=== PATIENT | female | born 2005 | race African-American/Black ===

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

== ENCOUNTER → 2023-07-24 11:11 | Outpatient (CLI) | payer BC, SELFPAY ==
--- NOTE | ~2023-07-24 | US_ITS ---
EXAMINATION: US OB <= 14 weeks fetus DATE: 07/24/2023 12:16 INDICATION: First trimester dating TECHNIQUE: Real-time pelvic transabdominal and transvaginal ultrasound was performed. COMPARISON: None. FINDINGS: The uterus measures 13.4 x 6.8 x 7.9 cm. There is an intrauterine gestational sac. A yolk s ac is identified. heart motion is identified measuring 175 beats per minute (bpm) by M-mode Dop pler. The crown rump length measures 4.3 cm, which correlates with an estimated gestational age of 11 weeks and 1 day(s) (+/-) 7 day(s). The right ovary measures 4.9 x 2.9 x 2.7 cm. The left ovary measures 2.8 x 2.0 x 1.7 cm. There is nor mal vascular flow in the ovaries. There is no free fluid in the pelvis. IMPRESSION: 1. Live intrauterine with an estimated gestational age of 11 weeks and 1 day(s) (+/-) 7 day (s) and an estimated delivery date of 02/11/2024. Reviewed, dictated and finalized at location A. IMPRESSION: 1. Live intrauterine with an estimated gestational age of 11 weeks an d 1 day(s) (+/-) 7 day(s) and an estimated delivery date of 02/11/2024.
--- NOTE | ~2023-07-24 | US_ITS ---
US breast RT complete DATE: 07/24/2023 11:32 INDICATION: Follow-up of palpable lump in upper outer quadrant of right breast since 09/08/2021 TECHNIQUE: Real-time imaging of complete right breast including all 4 quadrants and subareolar area COMPARISON: 09/08/2021 Limited right breast ultrasound FINDINGS: At 11:00 12 cm from the nipple there is a circumscribed benign appearing lymph node measuri ng 3.5 x 9.6 x 9.7 mm, with uniform thickness and echogenicity of the cortex, vascularity at the hilu m. No suspicious shadowing is noted. No suspicious mass or shadowing, cyst or other significant sonographic finding is noted in the right breast. IMPRESSION: BI-RADS Category 2: Benign Reviewed, dictated and finalized at Location A. Reviewed, dictated and finalized at location A. IMPRESSION: BI-RADS Category 2: Benign
== END ==
PROVIDERS: PCP Registered Nurse; Visit Provider Registered Nurse
DX: Z36.9 Encounter for antenatal screening, unspecified (principal); Z87.898 Personal history of other specified conditions; Z3A.11 11 weeks gestation of pregnancy
CPT/HCPCS: 76641; 76801

== ENCOUNTER 2023-09-18 11:10 | Outpatient (CLI) | payer BC, SELFPAY ==
[2023-09-18 11:41] LABS: Basophils Percent Auto 0.3 % (0.2-1.2); Eosinophils Absolute Auto 0.1 K/mm3 (0-0.3); Eosinophils Percent Auto 0.8 % (0-4.4); Hematocrit 40.2 % (37.0-47.0); Hemoglobin 13.4 g/dL (12.0-15.0); Immature Granulocyte Absolute 0.04 K/mm3 (0.00-0.031); Immature Granulocyte Percent A 0.4 % (0-0.5); Lymphocytes Absolute Auto 2.18 K/mm3 (0.9-3.2); Lymphocytes Percent Auto 24.2 % (18.3-44.2); Mean Corpuscular HGB Conc 33.3 g/dl (32-36); Mean Corpuscular Hemoglobin 29.4 pg (26-34); Mean Corpuscular Volume 88.2 fl (80-100); Mean Platelet Volume 10.5 fl (7.4-10.4); Monocytes Absolute Auto 0.7 K/mm3 (0.1-0.6); Monocytes Percent Auto 7.3 % (2.6-8.5); Platelet Count Result 211 k/mm3 (150-375); Red Blood Count 4.56 M/mm3 (4.2-5.4); Red Cell Distribution Width 12.7 % (11.5-14.5)
[2023-09-18 11:48] LABS: Appearance Urine Cloudy (Clear); Bacteria Urine 4+ /hpf; Bilirubin Urine Negative (Negative); Blood Urine Negative (Negative); Color Urine Yellow (Yellow); Glucose Urine UA Negative (Negative); Ketones Urine Negative (Negative); Leukocyte Esterase Ur Negative LEU/UL (NEGATIVE); Nitrate Urine Negative (Negative); Non Pathogenic Casts 0-2; Protein Urine Negative (Negative); RBC Urine 0-2 /hpf (0-2); Specific Grav Ur 1.024 (1.001-1.035); Squamous Epithelial Cell Urine Moderate /hpf (Few); pH Urine 6.5 (5.0-9.0)
[2023-09-18 11:50] LABS: Add Urine Microscopic? YES
[2023-09-18 12:20] LABS: Vitamin D 25 Hydroxy 40.1 ng/mL
[2023-09-18 12:32] LABS: HIV 1/2 Ab P24 Ag Result Negative (Negative)
[2023-09-18 12:45] LABS: Hepatitis B Surface Antigen Negative (Negative)
[2023-09-18 12:51] LABS: Hepatitis C Virus Antibody Negative (Negative)
[2023-09-18 13:18] LABS: Rapid Plasma Reagin Non-Reactive (NonReactive)
[2023-09-18 21:03] LABS: Rubella IgG Antibody > 110.0 IU/ML
[2023-09-22 14:43] LABS: Hematocrit 40.4 % (35.0-45.0); Hemoglobin 13.9 g/dL (11.7-15.5); MCH 30.2 pg (27.0-33.0); MCV 87.8 fL (80.0-100.0); RDW 12.5 % (11.0-15.0)
== END 2023-09-18 11:11 | disposition home or self-care (01) ==
LOC: ANHLAB 11:11
PROVIDERS: PCP Registered Nurse; Visit Provider Obstetrics & Gynecology
DX: Z34.01 Encounter for supervision of normal first pregnancy, first trimester (principal); Z3A.00 Weeks of gestation of pregnancy not specified
CPT/HCPCS: 36415; 81001; 82306; 83021; 84443; 85025; 86592; 86703; 86762; 86787; 86803; 86850; 86900; 86901; 87086; 87088; 87340; G0432

== ENCOUNTER 2023-11-05 21:14 | Observation (INO) | payer BC, SELFPAY ==
[2023-11-05 21:45] VITALS: BP 124/58; PULSE 96
[2023-11-05 22:00] VITALS: BP 113/56; PULSE 86
[2023-11-05 22:15] VITALS: BP 120/86; PULSE 99
[2023-11-05 22:26] VITALS: BMI 23.9
--- NOTE | 2023-11-06 08:36 | PM.OBTRLD ---
OB - Triage/Final Diagnosis Visit Information Reason for evaluation: threatened labor Comments/Additional reasons for admission: I have assessed the risk for this patient, Spring Deleon, and determined that she would benefit from observation care. Evaluation Vital signs: Vital Signs - 24 hr 11/05/23 21:45 11/05/23 22:00 11/05/23 22:15 Pulse Rate 96 86 99 Blood Pressure 124/58 L 113/56 L 120/86
== END 2023-11-05 22:40 | disposition home or self-care (01) ==
PROVIDERS: Admitting Provider Obstetrics & Gynecology; PCP Registered Nurse; Visit Provider Obstetrics & Gynecology
DX: O47.02 False labor before 37 completed weeks of gestation, second trimester (principal); Z3A.25 25 weeks gestation of pregnancy
CPT/HCPCS: 59025; G0378; G0379

== ENCOUNTER 2023-12-10 13:50 | Outpatient (CLI) | payer BC, SELFPAY ==
[2023-12-10 15:13] LABS: Hematocrit 38.6 % (37.0-47.0); Hemoglobin 12.6 g/dL (12.0-15.0); Mean Corpuscular HGB Conc 32.6 g/dl (32-36); Mean Corpuscular Hemoglobin 29.8 pg (26-34); Mean Corpuscular Volume 91.3 fl (80-100); Mean Platelet Volume 10.9 fl (7.4-10.4); Platelet Count Result 162 k/mm3 (150-375); Red Blood Count 4.23 M/mm3 (4.2-5.4); Red Cell Distribution Width 13.5 % (11.5-14.5); White Blood Count 8.6 K/mm3 (4.5-10.0)
[2023-12-10 15:25] LABS: Glucose 1 Hour PP 50gm Dose 77 mg/dL
[2023-12-10 16:05] LABS: HIV 1/2 Ab P24 Ag Result Negative (Negative)
[2023-12-11 13:59] LABS: Rapid Plasma Reagin Non-Reactive (NonReactive)
[2023-12-13 06:19] LABS: Prolactin 101.6 ng/mL (***)
== END 2023-12-10 13:51 | disposition home or self-care (01) ==
LOC: ANHLAB 13:52
PROVIDERS: Obstetrics & Gynecology; PCP Registered Nurse; Visit Provider Registered Nurse
DX: Z34.92 Encounter for supervision of normal pregnancy, unspecified, second trimester (principal); N64.52 Nipple discharge
CPT/HCPCS: 36415; 82947; 84146; 85027; 86592; 86703; G0432

== ENCOUNTER 2024-02-12 01:33 | Inpatient (IN) | payer BC, SELFPAY ==
[2024-02-12] VITALS (66 sets, daily range): BP systolic 93–181; BP diastolic 30–163; PULSE 74–200; RESP 16–18; TEMP 36.7–37.4; O2SAT 93–100; BMI 34.2
--- NOTE | 2024-02-12 02:04 | LDADM ---
This patient, Spring Deleon, was admitted to Labor/Delivery/Recovery 104 on 02/12/24 at 01:33. Plans for labor, pain management and were discussed with patient. Patient/family oriented to hospital policies and general routines including ID bracelet, bed and alarms, visiting hours, pain management, procedures, bathroom and other care routines, personal items, smoking policy, room service/diet and guest tray routines, security routines, and visiting hours. Patient/Family are encouraged to report perceived risks to care and to ask questions if they do not understand what they are told or what they should do. See OBIX for further documentation.
[2024-02-12 02:05] LABS: Basophils Percent Auto 0.1 % (0.2-1.2); Eosinophils Percent Auto 0.3 % (0-4.4); Hematocrit 43.4 % (37.0-47.0); Hemoglobin 14.5 g/dL (12.0-15.0); Immature Granulocyte Absolute 0.05 K/mm3 (0.00-0.031); Immature Granulocyte Percent A 0.3 % (0-0.5); Lymphocytes Absolute Auto 1.56 K/mm3 (0.9-3.2); Lymphocytes Percent Auto 10.7 % (18.3-44.2); Mean Corpuscular HGB Conc 33.4 g/dl (32-36); Mean Corpuscular Hemoglobin 29.5 pg (26-34); Mean Corpuscular Volume 88.2 fl (80-100); Mean Platelet Volume 11.4 fl (7.4-10.4); Monocytes Absolute Auto 1.2 K/mm3 (0.1-0.6); Neutrophils Absolute Auto 11.7 K/mm3 (1.3-6.7); Neutrophils Percent Auto 80.6 % (45.5-73.1); Platelet Count Result 170 k/mm3 (150-375); Red Blood Count 4.92 M/mm3 (4.2-5.4); Red Cell Distribution Width 13.5 % (11.5-14.5); White Blood Count 14.5 K/mm3 (4.5-10.0)
[2024-02-12] MEDS: LACTATED RINGERS 1,000 ML 125 ML IV CONT (02:05)
--- NOTE | 2024-02-12 02:37 | WPDANESEPP ---
Anes - Eval Pre Procedure Procedure: labor epidural Date/Time: 02/12/24 02:37 Pre Op Diagnosis: Labor Patient Data Age: 19 Gender: F Height: 1.57 m Weight: 85 kg Last Vital Signs Pulse 119 H 02/12/24 02:32 BP 124/73 02/12/24 02:32 Allergies Allergy/AdvReac Type Severity Reaction Status Date / Time POLLENEXTRACT Allergy Mild Other Uncoded 02/05/24 10:57 Home Medications Medication Instructions Recorded Confirmed Type vitamins-iron fumarate 65 1 tablet PO DAILY 07/18/23 01/15/24 History mg iron-folic acid 1 mg tablet Laboratory Tests 02/12/24 01:55 WBC Pending RBC Pending Hgb Pending Hct Pending MCV Pending MCH Pending MCHC Pending RDW Pending Plt Count Pending MPV Pending Immature Gran % (Auto) Pending Neut % (Auto) Pending Lymph % (Auto) Pending [place] % (Auto) Pending Eos % (Auto) Pending Baso % (Auto) Pending Lymph # (Auto) Pending [place] # (Auto) Pending Eos # (Auto) Pending Baso # (Auto) Pending Abs Immat Gran (auto) Pending Absolute Neuts (auto) Pending Absolute Nucleated RBC Pending Nucleated RBC % Pending RPR Pending Patient hx anesthesia problems: none Family hx anesthesia problems: none Results Review: All pre-operative results and documents have been reviewed as part of the pre-operative evaluation. [facility] Past Medical History Medical History Amenorrhea, primary Breast mass, right (09/2021) had ULtrasound Benign Encounter for supervision of normal first in first trimester Finger deformity surgery on bilateral pinky finger for growth plate Nipple discharge Family History Family History Mother Asthma Cancer of kidney Father Diabetes mellitus Hypertension Heart disease Grandparent Diabetes mellitus paternal Hypertension paternal Heart disease paternal Other Stomach cancer paternal aunt Social History Social History Smoking status: Never smoker Second hand tobacco smoke exposure: No Alcohol intake: never Substance use: never Substance use type: does not use Do You Feel Safe in your Home?: Yes Lack of Transportation: No Lack of Food: Never True Current Housing: I Have Housing Concerned About Future Housing: No Difficulty Paying Gas/Electric Bills: No Difficulty Paying for Meds: No Currently Unemployed: No Education: High School Diploma/GED Difficulty w/ Childcare or Family Care: No Living arrangements: other Additional living arrangements comments: lives with boyfriend Occupation/Education: occupation Additional occupation/education comments: 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
[2024-02-12] MEDS: PHENYLEPHRINE 1,000 MCG/10 ML SYRINGE 100 MCG IV PUSH ×2 (03:25→03:30)
[2024-02-12] MEDS: OXYTOCIN 30 UNITS/NS 500 ML 30 UNITS/500 ML BAG 999 UNITS IV CONT (05:24)
--- NOTE | 2024-02-12 05:38 | WPDHPUPDATE1 ---
History and Physical Update Update Date/Time: 02/12/24 05:38 History and Physical has been reviewed, including an updated exam of the patient. There are NO changes in the patient's condition. Risks, benefits, and alternatives have been discussed and questions answered. Patient agrees to proceed with procedure.
--- NOTE | 2024-02-12 05:38 | WPDOBADMIT ---
Obstetrics - Admit Note Admission Note: record reviewed. No pertinent additions to the history and/or any subsequent changes in the physical findings that are not consistent with the expected course of the were found. Additions to the history and/or subsequent changes in the physical findings follow. None.
--- NOTE | 2024-02-12 05:38 | PM.OBPRVD ---
OB - Vaginal Delivery Note Procedure Delivery date: 02/12/24 Induction method: None Delivery monitor: External FHT and External Uterine Route of delivery: Episiotomy description: None Laceration Description: None Specimen: No Quantitative Blood Loss (ml): 300 Anesthesia type: Epidural Disposition: Floor Complications: No immediate complications Narrative: Patient was prepped and draped in the usual manner for vaginal delivery. Maternal expulsive efforts readily delivered vertex over intact perineum, rest of baby delivered without difficulty. Cord was clamped cut baby was placed on maternal abdomen. Placenta delivered spontaneously and uterus was well contracted with minimal bleeding. Evaluation of the cervix vaginal vulva revealed no significant tears or lacerations, there was no bleeding. At this point procedure was considered terminated with immediate postoperative condition of mother and baby both excellent. Baby Weeks of gestation at delivery: 40 gender: Female presentation: vertex position: Right Occiput Anterior Placenta delivery description: Spontaneous Cord Vessel Description: 3 Vessels score one minute: 8 score five minutes: 9 AMG Delivery Billing Delivery Delivery: Delivery Charge
[2024-02-12] MEDS: OXYTOCIN 30 UNITS/NS 500 ML 30 UNITS/500 ML BAG 125 UNITS IV CONT (05:56)
[2024-02-12] MEDS: WITCH HAZEL 40 PADS 1 PAD TOPICAL (08:07)
[2024-02-12] MEDS: BENZOCAINE 20% AER SPR (*SP) 56 GM CAN 1 SPRAY TOPICAL (08:07)
--- NOTE | 2024-02-12 08:23 | OBPPTRN ---
Patient transferred to post room # 292 via wheelchair accompanied by and fob. Support person present. Pt introductions made and plan of care discussed per post , pain management, breast feeding, daily care activities. Oriented to unit, room, information board, rooming in, admission packet and security measures. PT and fob both recipients of such instructions and no barriers to learning identified at this time. PT received such instructions per one to one discussion, mom baby care guide and demonstrations this shift. Patient verbalizes understanding.
--- NOTE | 2024-02-12 11:12 | PC.NURSE ---
[id number] Introductions were made, then consulted with patient to assess needs related to . Discussed with mother her?plans to feed?her infant and the?experience so far. Encouraged understanding of the benefits of skin to skin (demonstrating unwrapping infant and placing upright on her chest), stimulating with massage touch, changing positions to encourage wakefulness, how to watch for early feeding cues, responsive feeding, feeding on demand (aiming for 8-12 times in 24 hours, about every 2-3 hours), milk production, building/maintaining a milk supply, duration of feeding, signs of adequate intake/output and how to record on the feeding sheet. Resources used for education were facilitated with the visual educational handout. Inpatient/outpatient resources provided with name written on the communication board. Mother voiced understanding of information and will call if there is a request for assistance. Reported to the Primary RN. [phone] Primary RN called for assistance in patient room. Upon entering RN is attempting to get infant to maintain latch using the football position. Reviewed positioning and ear, shoulder, hip alignment, supporting the breast to facilitate a deep latch, asymmetrical latch (off-center), leading with the chin with a big, open, wide gape and body close to mother. Infant latched optimally to the left breast in football position. Education given to the mother of how to visualize the suckling (with good rocking jaw motion), swallows (dropping of the lower jaw)with infant demonstrated swallowing with and without gentle compressions with suckling. was able to maintain latch without pain to mother protecting the nipple with optimal positioning and latching. Mother voiced understanding of information, demonstrated learning and will call if there is a request for assistance.
[2024-02-12 11:42] LABS: Rapid Plasma Reagin Non-Reactive (NonReactive)
[2024-02-12] MEDS: MULTIVIT/MIN/PREN/FOL AC/IRON TABLET 1 TAB PO (12:40)
[2024-02-12] MEDS: DOCUSATE SODIUM 100 MG CAPSULE PO ×2 (12:40→16:36)
[2024-02-12] MEDS: IBUPROFEN 600 MG TABLET PO (12:40)
[2024-02-12] MEDS: ACETAMINOPHEN 325 MG TABLET 650 MG PO (14:56)
[2024-02-13 01:13] VITALS: BP 127/75; PULSE 107; RESP 16; TEMP 36.9; O2SAT 98
[2024-02-13 05:54] LABS: Hematocrit 37.2 % (37.0-47.0); Hemoglobin 12.1 g/dL (12.0-15.0)
[2024-02-13 07:25] VITALS: BP 123/70; PULSE 81; RESP 16; TEMP 36.9; O2SAT 100
--- NOTE | 2024-02-13 08:35 | WPDANLDPN2 ---
Anes-Prog Note L&D Date/Time: 02/13/24 08:35 Neuro status: Neuro function grossly intact. Vital Signs: Last Vital Signs Temp 36.9 C 02/13/24 01:13 Pulse 107 H 02/13/24 01:13 Resp 16 02/13/24 01:13 BP 127/75 02/13/24 01:13 Pulse Ox 98 02/13/24 01:13 O2 Del Method Room Air 02/12/24 21:20 Pain score (VAS): 0 Patient feedback: Patient satisfied with anesthetic care.
[2024-02-13] MEDS: IBUPROFEN 600 MG TABLET PO ×2 (09:09→16:21)
[2024-02-13] MEDS: MULTIVIT/MIN/PREN/FOL AC/IRON TABLET 1 TAB PO (09:09)
[2024-02-13] MEDS: DOCUSATE SODIUM 100 MG CAPSULE PO (09:09)
--- NOTE | 2024-02-13 12:02 | PM.OBPNVD ---
OB - PN: Subj Subjective Date/time seen: 02/13/24 12:02 Patient comments: pain well controlled, tolerating diet and other (Decreasing lochia.) baby status: doing well and nursing well OB - PN: Obj Data Labs 02/13/24 05:37 Labs: Laboratory Results - last 24 hr 02/13/24 05:37 Hgb 12.1 Hct 37.2 OB - PN A/P Plan day: 1 Plan: routine care Comments: Patient doing well. Time Spent With Patient Time: Total time spent is greater than 50% in coordination of care (as documented) at patient's floor/unit and/or counseling patient: Exam Psych: Affect: normal affect Other: Abd: fundus firm below umbilicus, nontender Perineum: healing Ext: nontender
[2024-02-13] MEDS: ACETAMINOPHEN 325 MG TABLET 650 MG PO (13:50)
[2024-02-13 20:28] VITALS: BP 113/65; PULSE 91; RESP 16; TEMP 36.4; O2SAT 100
[2024-02-13 21:16] VITALS: PULSE 91; RESP 16; O2SAT 100
[2024-02-14] MEDS: IBUPROFEN 600 MG TABLET PO ×2 (03:24→08:24)
[2024-02-14 03:30] VITALS: BP 121/70; PULSE 92; O2SAT 100
[2024-02-14 08:00] VITALS: BP 125/71; PULSE 97; RESP 16; TEMP 36.9; O2SAT 100
[2024-02-14] MEDS: MULTIVIT/MIN/PREN/FOL AC/IRON TABLET 1 TAB PO (08:23)
[2024-02-14] MEDS: DOCUSATE SODIUM 100 MG CAPSULE PO (08:23)
--- NOTE | 2024-02-14 09:56 | P.PNOB_ITS ---
OB - PN: Subj Subjective Date/time seen: 02/14/24 09:56 Patient comments: pain well controlled, tolerating diet and other (Decreasing lochia.) baby status: doing well and nursing well Halma feeding status: exclusively breast feeding OB - PN: Obj Data Labs 02/13/24 05:37 OB - PN A/P Plan day: 2 Plan: discharge home and other Comments: Patient doing well. Follow up 4-6 weeks. Discharge instructions provided. Time Spent With Patient Time: Total time spent is greater than 50% in coordination of care (as documented) at patient's floor/unit and/or counseling patient: Time with patient: less than 15 minutes Exam Psych: Affect: normal affect Other: Abd: fundus firm below umbilicus, nontender Perineum: healing Ext: nontender
--- NOTE | 2024-02-14 12:03 | PC.NURSE ---
Patient viewed the discharge video Mother & Baby Care, The First Two Weeks . Patient was given the opportunity and encouraged to ask questions. Patient verbalized understanding of information shared and has been given the mother/baby guide for home reference.
--- NOTE | 2024-02-14 16:42 | PC.NURSE ---
[id number] Consulted with mother concerning needs. Mother is feeding appropriately for growth of , voiced understanding of how to stimulating to eat, and demonstrates effective on the left breast using cross cradle positioning. Encouraged mother to not allow infant to hang out at the breast non-nutritively sucking but rather watch for swallowing. has had appropriate feedings in the last 24 hours meets the outcomes for weight, output, blood sugar and jaundice at this time. Reinforced understanding of milk production, transition of milk, signs of adequate intake, transition of stool, prevention/relief of engorgement, plugged ducts, mastitis, responsive watching for feeding cues, the different methods of stimulating infant to breastfeed 1-3 hours after the start of the last feeding, community resources, and when to call a provider using the resource of the feeding sheet along with the mom and baby guide. Mother voiced understanding of the information shared, is confident to continue effectively her at home, when to call for assistance, denies any additional assistance or education at this time. Reported to the Primary RN.
[2024-02-15 08:33] VITALS: BP 120/65; PULSE 85; RESP 18; TEMP 36.8; O2SAT 100
--- NOTE | 2024-02-17 10:32 | PM.OBDSVD ---
DS: Admitting Diagnosis Discharge Date 02/14/24 Admitting Diagnosis DS: Discharge Diagnosis Discharge Diagnosis (1) , delivered: Code(s): O80 - Encounter for full-term uncomplicated delivery Status: Acute OB - DS: Summary OB Procedures : None OB Procedures Intrapartum: Spontaneous Vag Delivery OB Procedures: : None Peripartum Data Laceration Description: None Episiotomy description: None Time Spent with Patient Time attestation: Total time spent providing and/or coordinating discharge services: Discharge Plan Discharge Attending physician on discharge: Enrique Torrez Consulting providers: Dai Mcdowell Discharging Clinician: Enrique Torrez Anticipated Discharge Date/Time: 02/14/24 09:57 Patient Disposition: Home, Self-Care Activity: may shower and pelvic rest Diet: regular Discharge Instructions: Education: Mom and Baby Guide Given to: Mother Follow-Up: Call your delivering provider's office for an appointment to be seen in: 4-6 weeks Mom and baby should come to the [facility] for the follow-up appointment. Appointment Date/Time: February 15, 2024 at 8:00 am What to expect at your follow-up visit: Physical Assessment Call [phone] if you are unable to keep your appointment time. BREAST CARE: * Wear a snug supportive bra. * For engorgement discomfort: Breast Feeding: * Apply warm moist washcloths * Express milk as needed to relieve engorgement * Wear loose clothing Bottle Feeding: * May apply ice packs * For sore nipples: * Identify correct latch-on * Apply warm moist washcloths before and after nursing * Air dry nipples after nursing * May apply Lansinoh cream to nipples PERINEAL CARE: * Until bleeding stops, use your tye bottle after urinating * Change your pad frequently throughout the day * You may take sitz baths several times a day (fill your bathtub with warm water and soak for 20 minutes.) Do NOT bathe in the water * No tub baths until seen by your physician - You may shower ACTIVITY: * Rest as much as possible. * Do not exercise or lift anything heavier than your baby (such as laundry or other children.) * Avoid stairs or driving as much as possible. * Do not put anything into the vagina. No douching, tampons, or sexual activity until seen by physician. NOTIFY PHYSICIAN IF YOU HAVE ANY QUESTIONS OR IF ANY OF THE FOLLOWING SYMPTOMS OCCUR: * If your perineum becomes red, swollen, or more painful than what you have experienced in the hospital. * If your vaginal bleeding becomes foul smelling. * If your vaginal bleeding becomes more heavy than a period or if your bleeding changes from pink to bright red. However, you may pass an occasional walnut-sized clot once or twice for the first week . * If you experience a sharp, shooting pain in you calves. * If you discover a hard, reddened area on your breast or if you experience flu-like symptoms. DIET: * Eat regular, well-balanced meals. * Drink plenty of fluids daily. If , drink to thirst. Patient Instructions: Your Baby (DC), Vaginal Delivery (DC) Stand Alone Forms: General Discharge Information Follow-up/Referrals: Enrique Torrez MD [Physician] - 4 Weeks (call for appointment) Discharge Medications: Continued vit-iron fum-folic ac 65 mg iron- 1 mg tablet 1 tablet PO DAILY No Action cephalexin 500 mg capsule 500 mg PO Q6H 7 Days Qty: 28 0RF Date of admission: 02/12/24 01:33 Primary Care Provider: PHYSICIAN,VP CUSTOMER DEVELOPMENT Admitting Provider: Enrique Torrez Attending physician on admission: Enrique Torrez Condition: Stable
== END 2024-02-14 13:25 | disposition home or self-care (01) | DRG 807 ==
LOC: ANHLDR 01:48 → ANHOB2 08:27
PROVIDERS: Admitting Provider Obstetrics & Gynecology; Visit Provider Obstetrics & Gynecology
DX: O80 Encounter for full-term uncomplicated delivery (principal); Z37.0 Single live birth; Z3A.40 40 weeks gestation of pregnancy
CPT/HCPCS: 36415; 85014; 85018; 85025; 86592; 86850; 86900; 86901; A9270; J2371; J2590; J2795; J7120

== ENCOUNTER 2024-02-17 01:05 | Emergency (ER) | payer BC, SELFPAY ==
[2024-02-17 01:16] VITALS: BP 133/82; PULSE 100; RESP 17; TEMP 36.2; O2SAT 99
[2024-02-17 01:34] VITALS: BP 138/96; PULSE 105; RESP 18; O2SAT 100
--- NOTE | 2024-02-17 02:25 | ED.GENADULT ---
HPI - General Adult General Chief complaint: Unspecified Stated complaint: Swollen and painful breasts, s/p delivery Time Seen by Provider: 02/17/24 02:06 Source: patient Mode of arrival: ambulatory Limitations: no limitations History of Present Illness HPI narrative: Patient is a 19-year-old female who presents to ED with complaint of bilateral breast pain. Patient had an uncomplicated vaginal delivery on 02/11. She reports over the last couple of days she has had increased breast enlargement, bilateral breast pain. States initially had more pain and swelling in right breast, now involving left breast as well. She states her milk has fully come in. She has been and pumping, but reports decreased milk output from right breast today. Last pumped around 10pm. Reports chills, lightheadedness, fatigue, malaise, nausea. Denies known fevers. Denies vomiting. Has been using cool compresses, massage, Tylenol without much improvement. OBGYN = Dr. Torrez Related Data Home Medications Medication Instructions Recorded Confirmed vitamins-iron fumarate 65 1 tablet PO DAILY 07/18/23 01/15/24 mg iron-folic acid 1 mg tablet Allergies Allergy/AdvReac Type Severity Reaction Status Date / Time POLLENEXTRACT Allergy Mild Other Uncoded 02/17/24 01:36 Berries Allergy Other Uncoded 02/17/24 01:36 Review of Systems Review of Systems: CONSTITUTIONAL: See HPI. GASTROINTESTINAL: See HPI. Breast: See HPI NEUROLOGIC: Reports lightheadedness. All systems reviewed & are unremarkable except as noted in HPI and below PMFSH Past Medical History Medical History Amenorrhea, primary Breast mass, right (09/2021) had ULtrasound Benign Encounter for supervision of normal first in first trimester Finger deformity surgery on bilateral pinky finger for growth plate Nipple discharge Family History Family History Mother Asthma Cancer of kidney Father Diabetes mellitus Hypertension Heart disease Grandparent Diabetes mellitus paternal Hypertension paternal Heart disease paternal Other Stomach cancer paternal aunt Social History Social History Smoking status: Never smoker Second hand tobacco smoke exposure: No Alcohol intake: never Substance use: never Substance use type: does not use Do You Feel Safe in your Home?: Yes Lack of Transportation: No Lack of Food: Never True Current Housing: I Have Housing Concerned About Future Housing: No Difficulty Paying Gas/Electric Bills: No Difficulty Paying for Meds: No Currently Unemployed: No Education: High School Diploma/GED Difficulty w/ Childcare or Family Care: No Living arrangements: other Additional living arrangements comments: lives with boyfriend Occupation/Education: occupation Additional occupation/education comments: bj at [employer] Gender identity (if verbalized by the patient): Female Sexual Orientation (if Verbalized by the Patient): Straight or Heterosexual Spiritual care concerns: No Exam Narrative: GENERAL: Uncomfortable appearing, BMI 32.9, in mild acute distress due to pain. HEAD: Normocephalic, atraumatic. RESPIRATORY: Airway patent, respirations nonlabored. CARDIOVASCULAR: Borderline tachycardic with regular rhythm without murmurs, rubs, or gallops. MUSCULOSKELETAL: Moves all extremities. No gross deformities. BREAST: Bilateral breast engorgement. Breast appears swollen and inflamed. Right breast with small area of induration to inferior lateral portion of breast. Diffuse tenderness throughout right breast with more focal tenderness to indurated region. No significant induration appreciated throughout left breast. No focal fluctuance or evidence of abscess. No nipp
[2024-02-17] MEDS: CEPHALEXIN 500 MG CAPSULE PO (03:24)
[2024-02-17] MEDS: ACETAMINOPHEN 500 MG TABLET 1000 MG PO (03:24)
[2024-02-17] MEDS: IBUPROFEN 600 MG TABLET PO (03:24)
[2024-02-17] MEDS: ONDANSETRON INJ 4 MG/2 ML VIAL IV PUSH (03:24)
[2024-02-17] MEDS: SODIUM CHLORIDE 0.9% IV 1,000 ML 999 ML IV CONT (03:25)
[2024-02-17 04:15] LABS: Basophils Percent Auto 0.4 % (0.2-1.2); Eosinophils Absolute Auto 0.2 K/mm3 (0-0.3); Eosinophils Percent Auto 2.1 % (0-4.4); Hematocrit 40.8 % (37.0-47.0); Hemoglobin 13.2 g/dL (12.0-15.0); Immature Granulocyte Absolute 0.03 K/mm3 (0.00-0.031); Immature Granulocyte Percent A 0.4 % (0-0.5); Lymphocytes Absolute Auto 1.76 K/mm3 (0.9-3.2); Lymphocytes Percent Auto 21.9 % (18.3-44.2); Mean Corpuscular HGB Conc 32.4 g/dl (32-36); Mean Corpuscular Hemoglobin 29.7 pg (26-34); Mean Corpuscular Volume 91.9 fl (80-100); Mean Platelet Volume 11.4 fl (7.4-10.4); Monocytes Absolute Auto 0.7 K/mm3 (0.1-0.6); Monocytes Percent Auto 8.2 % (2.6-8.5); Neutrophils Absolute Auto 5.4 K/mm3 (1.3-6.7); Platelet Count Result 203 k/mm3 (150-375); Red Blood Count 4.44 M/mm3 (4.2-5.4); Red Cell Distribution Width 13.3 % (11.5-14.5)
[2024-02-17 04:21] LABS: Alanine Aminotransferase 23 U/L (6-35); Albumin Level 3.8 g/dL (3.5-5.1); Alkaline Phosphatase 114 U/L (38-126); Anion Gap 6 mmol/L (8-16); Aspartate Amino Transferase 31 U/L (14-36); Bilirubin,Total 0.6 mg/dL (0.2-1.3); Blood Urea Nitrogen 12 mg/dL (7-17); Calcium 9.2 mg/dL (8.4-10.2); Carbon Dioxide 27 mmol/L (22-30); Chloride 105 mmol/L (98-107); Estimated CRCL calculation 108 ml/min; Estimated Glomerular Filt Rate > 60; Glucose 90 mg/dL (65-110); Lactic Acid Reflex 0.8 mmol/L (0.7-2.0); Potassium 3.8 mmol/L (3.4-5.0); Sodium 138 mmol/L (137-145)
== END 2024-02-17 05:13 | disposition home or self-care (01) ==
PROVIDERS: Emergency Provider Physician Assistant
DX: O91.23 Nonpurulent mastitis associated with lactation (principal); O92.79 Other disorders of lactation
CPT/HCPCS: 36415; 80053; 83605; 85025; 96361; 96374; 99284; A9270; J2405; J7030

== ENCOUNTER 2024-03-14 00:41 | Emergency (ER) | payer BC, SELFPAY ==
[2024-03-14 00:47] VITALS: BP 134/88; PULSE 110; RESP 16; O2SAT 98
--- NOTE | 2024-03-14 00:56 | ED.GENADULT ---
HPI - General Adult General Chief complaint: CHEMICAL CHECKER Stated complaint: discomfort, four weeks Time Seen by Provider: 03/14/24 00:48 History of Present Illness HPI narrative: this is a 19-year-old female presenting to ED for vaginal discharge after delivery. Patient had a spontaneous uncomplicated vaginal delivery 4 weeks ago. She had sex with her 2 days ago against medical advice. After she had sex with she started have some uterine cramping and some vaginal discharge. This is similar to discharge she has been having since the . Patient also notes that she has been having intermittent dysuria. Patient became very anxious and came to the emergency department to be evaluated. No fevers chills chest pain difficulty breathing abdominal pain vaginal itching/ concern for STDs. Related Data Home Medications Medication Instructions Recorded Confirmed vitamins-iron fumarate 65 1 tablet PO DAILY 07/18/23 02/21/24 mg iron-folic acid 1 mg tablet Allergies Allergy/AdvReac Type Severity Reaction Status Date / Time POLLENEXTRACT Allergy Mild Other Uncoded 03/14/24 00:51 Berries Allergy Other Uncoded 03/14/24 00:51 PMFSH Past Medical History Medical History Amenorrhea, primary Breast mass, right (09/2021) had ULtrasound Benign Encounter for supervision of normal first in first trimester Finger deformity surgery on bilateral pinky finger for growth plate Nipple discharge Family History Family History Mother Asthma Cancer of kidney Father Diabetes mellitus Hypertension Heart disease Grandparent Diabetes mellitus paternal Hypertension paternal Heart disease paternal Other Stomach cancer paternal aunt Social History Social History Smoking status: Never smoker Second hand tobacco smoke exposure: No Alcohol intake: never Substance use: never Substance use type: does not use Do You Feel Safe in your Home?: Yes Lack of Transportation: No Lack of Food: Never True Current Housing: I Have Housing Concerned About Future Housing: No Difficulty Paying Gas/Electric Bills: No Difficulty Paying for Meds: No Currently Unemployed: No Education: High School Diploma/GED Difficulty w/ Childcare or Family Care: No Living arrangements: other Additional living arrangements comments: lives with boyfriend Occupation/Education: occupation Additional occupation/education comments: [employer] Gender identity (if verbalized by the patient): Female Sexual Orientation (if Verbalized by the Patient): Straight or Heterosexual Spiritual care concerns: No Exam Narrative: APPEARANCE: No apparent distress. Head: atraumatic. EYES: EOMI, NOSE: Atraumatic NECK: Trachea midline RESPIRATORY: No increased rate of breathing CARDIOVASCULAR: RRR, ABDOMINAL: Soft, nontender, no guarding or rebound MUSCULOSKELETAl: No obvious deformities NEURO: Alert. Moving 4/4 extremities SKIN:: Warm, dry. Normal color PSYCHIATRIC: Normal affect Course Vital Signs Vital signs: Vital Signs Pulse Rate 110 H 03/14/24 00:47 Respiratory Rate 16 03/14/24 00:47 Blood Pressure 134/88 03/14/24 00:47 Pulse Oximetry 98 03/14/24 00:47 Oxygen Delivery Room Air 03/14/24 00:47 Pulse Rate 110 H 03/14/24 00:47 Respiratory Rate 16 03/14/24 00:47 Blood Pressure 134/88 03/14/24 00:47 Pulse Oximetry 98 03/14/24 00:47 Oxygen Delivery Room Air 03/14/24 00:47 Medical Decision Making [facility] Narrative Medical decision making narrative: -Course: 19-year-old female presenting with vaginal discharge and abdominal cramping after having sex 4 weeks after delivery. Abdominal exam benign. No fevers or tenderness that would indicat
[2024-03-14 01:37] LABS: Appearance Urine Cloudy (Clear); Bacteria Urine 4+ /hpf; Bilirubin Urine Negative (Negative); Blood Urine 2+ (Negative); Color Urine Yellow (Yellow); Glucose Urine UA Negative (Negative); Ketones Urine Negative (Negative); Leukocyte Esterase Ur Trace LEU/UL (Negative); Need Manual Microscopic Reviewed; Nitrate Urine Negative (Negative); Non Pathogenic Casts 0-2; Protein Urine Negative (Negative); Specific Grav Ur 1.023 (1.001-1.035); Squamous Epithelial Cell Urine Few /hpf (Few); pH Urine 6.5 (5.0-9.0)
[2024-03-14 01:40] LABS: Add Urine Microscopic? YES
[2024-03-14 01:56] VITALS: BP 124/86; PULSE 86; RESP 15; O2SAT 100
[2024-03-14 02:14] VITALS: BP 128/74; PULSE 78; RESP 16; O2SAT 100
== END 2024-03-14 02:14 | disposition home or self-care (01) ==
PROVIDERS: Emergency Provider Emergency Medicine; PCP Obstetrics & Gynecology
DX: O86.20 Urinary tract infection following delivery, unspecified (principal); N39.0 Urinary tract infection, site not specified
CPT/HCPCS: 81001; 87086; 99283

== ENCOUNTER 2024-07-30 01:06 | Emergency (ER) | payer BC, SELFPAY ==
--- NOTE | ~2024-07-30 | XR_ITS ---
AP and oblique views of the bilateral ribs, and PA chest radiograph Clinical History: Pain Findings: No rib fracture is seen. Osseous alignment is anatomic. Lungs are clear, without focal cons olidation or pleural effusion. Cardiomediastinal contour is within normal limits. Soft tissues are un remarkable. Impression: Normal chest. No rib fracture is seen. Reviewed, dictated and finalized at [facility]. Impression: Normal chest. No rib fracture is seen.
[2024-07-30 01:09] VITALS: BP 134/73; PULSE 87; RESP 18; TEMP 36.7; O2SAT 100
--- NOTE | 2024-07-30 01:29 | ED.FALL ---
HPI - Fall General Chief Complaint: Fall <Fly Marcial PA-C - Last Filed: 07/30/24 02:41> Stated Complaint: fall <VAN Bell Last Filed: 07/30/24 02:41> Time Seen by Provider: 07/30/24 01:22 <VAN Bell Last Filed: 07/30/24 02:41> Source: patient <VAN Bell Last Filed: 07/30/24 02:41> Mode of arrival: ambulatory <VAN Bell Filed: 07/30/24 02:41> Limitations: no limitations <VAN Bell Filed: 07/30/24 02:41> History of Present Illness HPI Narrative: This is a 19-year-old female who presents to the ED for chief complaint of a fall downstairs today. Patient states that she slipped and fell down 6 steps. reports she does not normally wear socks and feels that she probably fell due to the sock slipping today. She reports pain throughout the entire body but seems to be worse on the left side of the ribs. States that she did hit her head but did not lose consciousness. Denies focal numbness, weakness, speech change, vision change or confusion. endorses soreness throughout the back, lower extremities and upper extremities. <Fly Marcial PA-C - Last Filed: 07/30/24 02:41> Related Data Allergies/Adverse Reactions: Allergies Allergy/AdvReac Type Severity Reaction Status Date / Time POLLENEXTRACT Allergy Mild Other Uncoded 03/31/24 12:11 Berries Allergy Other Uncoded 03/31/24 12:11 <Fly Marcial PA-C - Last Filed: 07/30/24 02:41> Review of Systems Review of Systems: All systems as dictated in HPI <Fly Marcial PA-C - Last Filed: 07/30/24 02:41> [facility] Past Medical History Medical History: Medical History Amenorrhea, primary Breast mass, right (09/2021) had ULtrasound Benign Encounter for supervision of normal first in first trimester Finger deformity surgery on bilateral pinky finger for growth plate Nipple discharge <Fly Marcial PA-C - Last Filed: 07/30/24 02:41> Family History Family History: Family History Mother Asthma Cancer of kidney Father Diabetes mellitus Hypertension Heart disease Grandparent Diabetes mellitus paternal Hypertension paternal Heart disease paternal Other Stomach cancer paternal aunt <Fly Marcial PA-C - Last Filed: 07/30/24 02:41> Social History Social History: Social History Smoking status: Never smoker Second hand tobacco smoke exposure: No Alcohol intake: never Substance use: never Substance use type: does not use Do You Feel Safe in your Home?: Yes Lack of Transportation: No Lack of Food: Never True Current Housing: I Have Housing Concerned About Future Housing: No Difficulty Paying Gas/Electric Bills: No Difficulty Paying for Meds: No Currently Unemployed: No Education: High School Diploma/GED Difficulty w/ Childcare or Family Care: No Living arrangements: other Additional living arrangements comments: lives with boyfriend Occupation/Education: occupation Additional occupation/education comments: [employer] Gender identity (if verbalized by the patient): Female Sexual Orientation (if Verbalized by the Patient): Straight or Heterosexual Spiritual care concerns: No <Fly Marcial PA-C - Last Filed: 07/30/24 02:41> Exam Narrative: GENERAL: Well-appearing, well-nourished, and in no acute distress. HEAD: Normocephalic, atraumatic. EYES: PERRLA and EOMI. ENT: Nares clear, no rhinorrhea or epistaxis. Mucous membranes moist. Oropharynx without tonsillar hypertrophy exudate or other lesions. NECK: Supple. No adenopathy or masses. CHEST: No respiratory distress. Clear to auscultation. No wheezes rales or rhonchi. Mild tenderness to the left anterior ribs.
[2024-07-30] MEDS: ORPHENADRINE CITRATE 100 MG TABLET.ER PO (02:22)
[2024-07-30] MEDS: ACETAMINOPHEN 500 MG TABLET 1000 MG PO (02:22)
[2024-07-30 02:58] VITALS: BP 129/74; PULSE 82; RESP 17; TEMP 36.6; O2SAT 99
== END 2024-07-30 03:00 | disposition home or self-care (01) ==
PROVIDERS: Emergency Provider Physician Assistant; PCP Obstetrics & Gynecology
DX: S29.9XXA Unspecified injury of thorax, initial encounter (principal); W10.9XXA Fall (on) (from) unspecified stairs and steps, initial encounter
CPT/HCPCS: 71111; 99283; A9270

== ENCOUNTER 2025-01-22 20:40 | Emergency (ER) | payer BC, SELFPAY ==
--- OUTSIDE RECORDS SUMMARY | 2025-01-22 20:42 | XMS_ITS | Clinical Summary ---
Author Organization [facility] Address [address] [address] Care Team Providers Care Compound Coating Machine Offbearer Name Role Phone Stephy Lee MD Primary Care Provider [phone] Stephy Lee MD Unavailable [phone] Source Comments [facility],non-owned Affiliates and Associated Physician Practices is amultiple site organization consisting of ambulatory clinics and hospital sitesin [place], [place], [place] and [place]. This disclosure is being madepursuant to the Care Everywhere program and may not contain all information available regarding this patient. Last updated 18.[facility] Allergies Active Allergy Reactions Criticality Noted Date Comments Raspberry Swelling 11/09/2020 [place] Swelling 11/09/2020 Medications * Be aware that medications may not be up to date on this document. Alwaysverify current medications with the patient. Medication Sig Dispensed Refills Start Date End Date Status aspirin-acetaminophe n-caffeine 250-250-65 MG tablet Take 1 tablet by mouth every 4 hours as needed for Headache Active ibuprofen (MOTRIN) 400 MG tablet Take 1 tablet by mouth every 6 hours as needed for Pain 30 tablet 05/13/2020 Active Social History Tobacco Use Types Packs/Day Years Used Date Smoking Tobacco: Never Smokeless Tobacco: Never Alcohol Use Standard Drinks/Week Comments Never 0 (1 standard drink = 0.6 oz pur e alcohol) AUDIT-C Answer Date Recorded Q1: How often do you have a drink containing alc ohol? Never 05/13/2020 Average Number of Drinks Not on file 020 Frequency of Binge Drinking Not on file 05/02 Sex and Gender Information Value Date Recorded Sex Assigned at Not on file Gender Identity Not on file Sexual Orientation Not on file Last Filed Vital Signs Vital Sign Reading Time Taken Comments Blood Pressure 118/70 11/09/2020 1:49 PM DEPUTY INSURANCE COMMISSIONER Pulse 100 11/09/2020 1:49 PM DEPUTY INSURANCE COMMISSIONER Temperature 36.7 C (98.1 F) 11/09/2020 1:49 PM DEPUTY INSURANCE COMMISSIONER Respiratory Rate 18 11/09/2020 1:49 PM DEPUTY INSURANCE COMMISSIONER Oxygen Saturation 95% 05/13/2020 3:48 AM CDT Inhaled Oxygen Concentration - - Weight 64.3 kg (141 lb 12.1 oz) 11/09/2020 1:49 PM DEPUTY INSURANCE COMMISSIONER Height 157.5 cm (5' 2 ) 05/13/2020 1:38 AM CDT Body Mass Index - - Plan of Treatment Health Maintenance Due Date Last Done Comments PAP SMEAR 2003 HIV SCREENING 2018 HPV VACCINE (1 - 3-dose series) 2018 CHLAMYDIA/GONORRHEA SCREENING 2019 MENINGOCOCCAL (Group B) VACC INE (1 of 2 - Standard) 2019 HEPATITIS C SCREENING 01/01/2021 DTAP/TDAP/TD VACCINES (1 - Tdap) 2022 HEPATITIS B VACCINE (1 of 3 - 19+ 3-dose series) 2022 COVID-19 VACCINE (1 - 2023-2 5 season) 2024 INFLUENZA VACCINE (#1) 2024 DEPRESSION SCREENING 12/02/2024 ZOSTER VACCINE (1 of 2) 2053 HIB VACCINE Aged Out No longer eligi ble based on patient's age to complete this topic MENINGOCOCCAL VACCINE Aged Out No lorie marta eligible based on patient's age to complete this topic PNEUMOCOCCAL VACCINE Aged Out No long er eligible based on patient's age to complete this topic Care Teams Compound Coating Machine Offbearer Relationship Specialty Start Date End Date Stephy Lee MD [address] [place] [id number] PCP - General 05/20/20 Stephy Lee MD [address] [place] [address] [place] [id number] Pediatrics 05/20/20
--- OUTSIDE RECORDS SUMMARY | 2025-01-22 20:42 | XMS_ITS | Referral Summary ---
Author Organization [facility] Address [address] [place] [address] Care Team Providers Care Residential Electrician Name Role Phone Stephy Lee MD Primary Care Provider [phone] Stephy Lee MD Unavailable Source Comments [facility],non-owned Affiliates and Associated Physician Practices is amultiple site organization consisting of ambulatory clinics and hospital sitesin [place], [place], [place] and [place]. This disclosure is being madepursuant to the Care Everywhere program and may not contain all information available regarding this patient. Last updated 18.[facility] Allergies Active Allergy Reactions Criticality Noted Date Comments Raspberry Swelling 11/09/2020 [place] Swelling 11/09/2020 Medications * Be aware that [...] Comments Blood Pressure 118/70 11/09/2020 1:49 PM MANAGER BUDGET Pulse 100 11/09/2020 1:49 PM MANAGER BUDGET Temperature 36.7 C (98.1 F) 11/09/2020 1:49 PM MANAGER BUDGET Respiratory Rate 18 11/09/2020 1:49 PM MANAGER BUDGET Oxygen Saturation 95% 05/13/2020 3:48 AM CDT Inhaled Oxygen Concentration - - Weight 64.3 kg (141 lb 12.1 oz) 11/09/2020 1:49 PM MANAGER BUDGET Height 157.5 cm (5' 2 ) 05/13/2020 1:38 AM CDT Body Mass Index - - Plan of Treatment Not on file Care Teams Residential Electrician Relationship Specialty Start Date End Date Stephy Lee MD [facility] [employer] [address] [address] PCP - General 05/20/20 Stephy Lee MD [address] [place] [id number] Pediatrics 05/20/20
--- OUTSIDE RECORDS SUMMARY | 2025-01-22 20:42 | XMS_ITS | Clinical Summary ---
Author Organization [facility] Address [address] [place] [address] Phone Care Team Providers Care Remodeler Name Role Phone Unavailable Primary Care Provider Unavailabl e Encounters Date Type Department Care Team Description 12/30/2024 External Device Data ST[facility] ABSTRACTION Provider, Abstract from Last 3 Months Social History Tobacco Use Types Packs/Day Years Used Date Smoking Tobacco: Never Assessed Comments Unknown Sex and Gender Information Value Date Recorded Sex Assigned at Not on file Legal Sex Female 7:21 AM CDT Gender Identity Not on file Sexual Orientation Not on file Plan of Treatment Health Maintenance Due Date Last Done Comments CHLAMYDIA SCREENING (ANNUAL) 11-24 YEARS 2014 HPV VACCINES (1 - 3-dose series) 2018 DTAP/TDAP/TD VACCINES (1 - Tdap) 2022 HEPATITIS B VACCINES (1 of 3 - 19+ 3-dose series) 2022 CERVICAL CANCER SCREENING 2024 INFLUENZA VACCINE (#1) 2024 PNEUMOCOCCAL VACCINE 0-64 YEARS Aged Out No longer eligible based on patient's age to complete this topic Insurance [facility] [employer] ACCESS CHOICE MEDICAID [place]
--- OUTSIDE RECORDS SUMMARY | 2025-01-22 20:42 | XMS_ITS | Patient Health Summary ---
Author Organization [facility] Address [address] [place] [address] Care Team Providers Care Automatic Dispenser Mechanic Name Role Phone Stephy Lee MD Primary Care Provider [phone] Stephy Lee MD Unavailable [phone] Note from [facility],non-owned Affiliates and Associated Physician Practices is amultiple site organization consisting of ambulatory clinics and hospital sitesin [place], [place], [place] and [place]. This disclosure is being madepursuant to the Care Everywhere program and may not contain all information available regarding this patient. Last updated 18.[facility] Allergies * Raspberry(Swelling) * Drain(Swelling) Medications * Be aware that medications may not be up to date on this document. Alwaysverify current medications with the patient. * [id number]-lrwvncnboylfe-sybyovng 250-250-65 MG tablet Take 1 tablet by mouth every 4 hours as needed for Headache * ibuprofen (MOTRIN) 400 MG tablet(Started 05/13/2020) Take 1 tablet by mouth every 6 hours as needed for Pain Social History Tobacco Use Types Packs/Day Years [...] Comments Blood Pressure 118/70 11/09/2020 1:49 PM HOTEL ATTENDANT Pulse 100 11/09/2020 1:49 PM HOTEL ATTENDANT Temperature 36.7 C (98.1 F) 11/09/2020 1:49 PM HOTEL ATTENDANT Respiratory Rate 18 11/09/2020 1:49 PM HOTEL ATTENDANT Oxygen Saturation 95% 05/13/2020 3:48 AM CDT Inhaled Oxygen Concentration - - Weight 64.3 kg (141 lb 12.1 oz) 11/09/2020 1:49 PM HOTEL ATTENDANT Height 157.5 cm (5' 2 ) 05/13/2020 1:38 AM CDT Body Mass Index - - Procedures * ED INCISION AND DRAINAGE(Performed 11/09/2020) * ED INCISION AND DRAINAGE(Performed 05/13/2020) Performed for Abscess Results * Incision/Drainage (11/09/2020 4:07 PM HOTEL ATTENDANT) Narrative Jero Clemente MD - 11/09/2020 4:07 PM HOTEL ATTENDANT Srikanth Magallon MD 11/09/2020 4:16 PM Incision/Drainage Date/Time: 11/09/2020 4:15 PM Performed by: Srikanth Magallon MD Authorized by: Jero Clemente MD Consent: Consent obtained: Verbal Consent given by: Patient and parent Risks discussed: Bleeding, incomplete drainage, infection and damage to other organs Alternatives discussed: No treatment Location: Type: Abscess Size: 2 cm Location: left labial. Pre-procedure details: Skin preparation: Betadine Procedure type: Complexity: Simple Procedure details: Needle aspiration: yes Needle size: 18 G Drainage: Bloody Drainage amount: Scant Wound treatment: Wound left open Packing materials: None Post-procedure details: Patient tolerance of procedure: Tolerated well, no immediate complications Jero Clemente MD PROCEDURE/MINOR SURG ICAL ORDERABLES * Incision/Drainage (05/13/2020 1:57 AM CDT) Narrative Enrique Jones MD - 05/13/2020 1:57 AM CDT Enrique Jones MD 05/13/2020 3:55 AM Incision/Drainage Date/Time: 05/13/2020 3:47 AM Performed by: Enrique Jones MD Authorized by: Enrique Jones MD Consent: Consent obtained: Written Consent given by: Parent Risks discussed: Incomplete drainage, pain and infection Alternatives discussed: Alternative treatment Location: Type: Abscess Size: 2x3cm Location: Anogenital Pre-procedure details: Skin preparation: Chloraprep Sedation: Sedation type: Anxiolysis Anesthesia (see MAR for exact dosages): Anesthesia method: Local infiltration Local anesthetic: Lidocaine 1% w/o epi Procedure type: Complexity: Simple Procedure details: Incision types: Single straight Scalpel blade: 11 Wound management: Irrigated with saline Drainage: Purulent Drainage amount: Moderate Wound treatment: Wound left open Packing materials: None Post-procedure details: Patient tolerance of procedure: Tolerated well, no immediate complications Enrique Jones MD PROCEDURE/MINOR SURG ICAL ORDERABLES Care Teams Automatic Dispenser Mechanic Relationship Specialty Start Date End Date Stephy Lee MD [address] [place] [id number] PCP - General 05/20/20 Stephy Lee MD [address] [place] [id number] Pediatrics 05/20/20
[2025-01-22 20:54] VITALS: BP 128/78; PULSE 120; RESP 20; TEMP 36.8; O2SAT 100
--- OUTSIDE RECORDS SUMMARY | 2025-01-22 23:31 | XMS_ITS | Clinical Summary ---
Author Organization [facility] Address [address] [place] [address] Phone Care Team Providers Care Housing Relocation Name Role Phone Unavailable Primary Care Provider [...] patient's age to complete this topic Insurance [facility] [employer] ACCESS CHOICE MEDICAID [place]
--- OUTSIDE RECORDS SUMMARY | 2025-01-22 23:31 | XMS_ITS | Referral Summary ---
Author Organization [facility] Address [address] [place] [address] Care Team Providers Care Vallez Filter Operator Name Role Phone Stephy Lee MD Primary Care Provider [phone] Stephy Lee MD Unavailable [phone] Source Comments [facility],non-owned Affiliates and Associated Physician Practices is amultiple site organization consisting of ambulatory clinics and hospital sitesin [place], [place], [place] and [place]. This disclosure is being madepursuant to the Care Everywhere program and may not contain all information available regarding this patient. Last updated 18.[facility] Allergies Active Allergy Reactions Criticality Noted Date Comments Raspberry Swelling 11/09/2020 [place] Swelling 11/09/2020 Medications * Be aware that [...] Comments Blood Pressure 118/70 11/09/2020 1:49 PM ONCOLOGY SPECIALIST Pulse 100 11/09/2020 1:49 PM ONCOLOGY SPECIALIST Temperature 36.7 C (98.1 F) 11/09/2020 1:49 PM ONCOLOGY SPECIALIST Respiratory Rate 18 11/09/2020 1:49 PM ONCOLOGY SPECIALIST Oxygen Saturation 95% 05/13/2020 3:48 AM CDT Inhaled Oxygen Concentration - - Weight 64.3 kg (141 lb 12.1 oz) 11/09/2020 1:49 PM ONCOLOGY SPECIALIST Height 157.5 cm (5' 2 ) 05/13/2020 1:38 AM CDT Body Mass Index - - Plan of Treatment Not on file Care Teams Vallez Filter Operator Relationship Specialty Start Date End Date Stephy Lee MD [facility] Room n House [address] [id number] PCP - General 05/20/20 Stephy Lee MD [address] [place] [id number] Pediatrics 05/20/20
--- OUTSIDE RECORDS SUMMARY | 2025-01-22 23:31 | XMS_ITS | Patient Health Summary ---
Author Organization [facility] Address [address] [place] [address] Care Team Providers Care Accountant Budget Name Role Phone Stephy Lee MD Primary Care Provider [phone] Stephy Lee MD Unavailable [phone] Note from [facility],non-owned Affiliates and Associated Physician Practices is amultiple site organization consisting of ambulatory clinics and hospital sitesin [place], [place], [place] and [place]. This disclosure is being madepursuant to the Care Everywhere program and may not contain all information available regarding this patient. Last updated 18.[facility] Allergies * Raspberry(Swelling) * [place](Swelling) Medications * Be aware that medications may not be up to date on this document. Alwaysverify current medications with the patient. * pxaxbqn-etpxcjyosuajv-evbtrksp 250-250-65 MG tablet Take 1 tablet by [...] Comments Blood Pressure 118/70 11/09/2020 1:49 PM PRECIPITATE WASHER Pulse 100 11/09/2020 1:49 PM PRECIPITATE WASHER Temperature 36.7 C (98.1 F) 11/09/2020 1:49 PM PRECIPITATE WASHER Respiratory Rate 18 11/09/2020 1:49 PM PRECIPITATE WASHER Oxygen Saturation 95% 05/13/2020 3:48 AM CDT Inhaled Oxygen Concentration - - Weight 64.3 kg (141 lb 12.1 oz) 11/09/2020 1:49 PM PRECIPITATE WASHER Height 157.5 cm (5' 2 ) 05/13/2020 1:38 AM CDT Body Mass Index - - Procedures * ED INCISION AND DRAINAGE(Performed 11/09/2020) * ED INCISION AND DRAINAGE(Performed 05/13/2020) Performed for Abscess Results * Incision/Drainage (11/09/2020 4:07 PM PRECIPITATE WASHER) Narrative Jero Clemente MD - 11/09/2020 4:07 PM PRECIPITATE WASHER Srikanth Magallon MD 11/09/2020 4:16 PM Incision/Drainage [...] MD PROCEDURE/MINOR SURG ICAL ORDERABLES Care Teams Accountant Budget Relationship Specialty Start Date End Date Stephy Lee MD [address] [place] [id number] PCP - General 05/20/20 Stephy Lee MD [address] [place] [id number] Pediatrics 05/20/20
--- OUTSIDE RECORDS SUMMARY | 2025-01-22 23:31 | XMS_ITS | Clinical Summary ---
Author Organization [facility] [employer] Address [address] [facility] [place] [address] Care Team Providers Care Catering Coordinator Name Role Phone Stephy Lee MD Primary Care Provider [phone] Stephy Lee MD Unavailable [phone] Source Comments [facility],non-owned Affiliates and Associated Physician Practices is amultiple site organization consisting of ambulatory clinics and hospital sitesin [place], [place], [place] and [place]. This disclosure is being madepursuant to the Care Everywhere program and may not contain all information available regarding this patient. Last updated 18.[facility] [employer] Allergies Active Allergy Reactions Criticality Noted Date Comments Raspberry Swelling 11/09/2020 Heath Swelling 11/09/2020 Medications * Be aware that [...] Comments Blood Pressure 118/70 11/09/2020 1:49 PM QUALITY ASSURANCE LEAD Pulse 100 11/09/2020 1:49 PM QUALITY ASSURANCE LEAD Temperature 36.7 C (98.1 F) 11/09/2020 1:49 PM QUALITY ASSURANCE LEAD Respiratory Rate 18 11/09/2020 1:49 PM QUALITY ASSURANCE LEAD Oxygen Saturation 95% 05/13/2020 3:48 AM CDT Inhaled Oxygen Concentration - - Weight 64.3 kg (141 lb 12.1 oz) 11/09/2020 1:49 PM QUALITY ASSURANCE LEAD Height 157.5 cm (5' 2 ) 05/13/2020 [...] age to complete this topic Care Teams Catering Coordinator Relationship Specialty Start Date End Date Stephy Lee MD [address] [place] [id number] PCP - General 05/20/20 Stephy Lee MD [address] [place] [address] [place] [phone] Pediatrics 05/20/20
== END 2025-01-22 23:38 | disposition left against medical advice (07) ==
LOC: ANHED 23:29
PROVIDERS: PCP Obstetrics & Gynecology
DX: R51.9 Headache, unspecified (principal)
CPT/HCPCS: 99199

== ENCOUNTER 2025-11-02 03:17 | Emergency (ER) | payer BC, SELFPAY ==
[2025-11-02] VITALS (18 sets, daily range): BP systolic 110–150; BP diastolic 69–84; PULSE 76–100; RESP 12–24; TEMP 36.9; O2SAT 99–100
--- NOTE | ~2025-11-02 | XR_ITS ---
Examination: XR chest 1V portable Clinical History: CP NUMBNESS IN ARMS Comparison: 07/30/2024 Technique: Portable AP Findings: Heart size normal. Lungs clear. No acute bony abnormality. IMPRESSION: 1. No acute cardiopulmonary findings given portable technique. Reviewed, dictated and finalized at location R. NIB GRINDER
--- OUTSIDE RECORDS SUMMARY | 2025-11-02 03:19 | XMS_ITS | Clinical Summary ---
Author Organization [facility] [employer] Address [address] [place] [address] Care Team Providers Care Nuclear Medicine Tech Name Role Phone Stephy Lee MD Primary Care Provider [phone] Stephy Lee MD Unavailable [phone] Source Comments [facility] [employer],non-owned Affiliates and Associated Physician Practices is amultiple site organization consisting of ambulatory clinics and hospital sitesin [place], [place] and [place]. This disclosure is being madepursuant to the Care Everywhere program and may not contain all information available regarding this patient. Last updated 18.[facility] [employer] Allergies Active Allergy Reactions Criticality Noted Date Comments Raspberry Swelling 11/09/2020 [place] Swelling 11/09/2020 Medications * Be aware that medications may not be up to date on this document. Alwaysverify current medications with the patient. aspirin-acetami nophen-caffeine 250-250-65 MG tablet Take 1 tablet by [...] of Binge Drinking Not on file 05/02 Comments No Sex and Gender Information Value Date Recorded Sex Assigned at Not on file Legal Sex Female 1:29 AM CDT Gender Identity Not on file Sexual Orientation Not on file Last Filed Vital Signs Vital Sign Reading Time Taken Comments Blood Pressure 118/70 11/09/2020 1:49 PM CONSULTING SOLUTION MANAGER Pulse 100 11/09/2020 1:49 PM CONSULTING SOLUTION MANAGER Temperature 36.7 C (98.1 F) 11/09/2020 1:49 PM CONSULTING SOLUTION MANAGER Respiratory Rate 18 11/09/2020 1:49 PM CONSULTING SOLUTION MANAGER Oxygen Saturation 95% 05/13/2020 3:48 AM CDT Inhaled Oxygen Concentration - - Weight 64.3 kg (141 lb 12.1 oz) 11/09/2020 1:49 PM CONSULTING SOLUTION MANAGER Height 157.5 cm (5' 2) 05/13/2020 1:38 AM CDT Body Mass Index - - Plan of Treatment Health Maintenance Due Date Last Done Comments HIV SCREENING 2018 HPV VACCINE (1 - 3-dose series) 2018 CHLAMYDIA/GONORRHEA SCREENING 2019 MENINGOCOCCAL (Group B) VACC INE SHARED DECISION-MAKING (1 of 2 - Standard) 2019 HEPATITIS C SCREENING 01/01/2021 DTAP/TDAP/TD VACCINES (1 - Tdap) 2022 HEPATITIS B VACCINE (1 of 3 - 19+ 3-dose series) 2022 DEPRESSION SCREENING 12/02/2024 COVID-19 VACCINE (1 - 2024-2 6 season) 2025 INFLUENZA VACCINE (#1) 2025 ZOSTER VACCINE (1 of 2) 2053 HIB VACCINE Aged Out No longer eligi ble based on patient's age to complete this topic MENINGOCOCCAL GROUPS A/C/Y/W VACCINE Aged Out No longer eligible b ased on patient's age to complete this topic PNEUMOCOCCAL VACCINE Aged Out No long er eligible based on patient's age to complete this topic Insurance KATHIE ANTHEM ANTHEM ANTHEM Member Subscriber Plan / Payer (Ef fective 2014-Present) Name:Jacinto Foster Relation to Subscriber:Child Name:JAQUAN FOSTER (Home) Address: [address] [place] [address] Payer ID:[id number] (NAIC) Type:PPO Address: [address] [place] [id number] Care Teams Nuclear Medicine Tech Relationship Specialty Start Date End Date Stephy Lee MD [address] [place] [id number] PCP - General 05/20/20 Stephy Lee MD [address] [place] [phone] Pediatrics 05/20/20
--- OUTSIDE RECORDS SUMMARY | 2025-11-02 03:19 | XMS_ITS | Clinical Summary ---
Author Organization [facility] Address [address] [place] [address] Phone Care Team Providers Care Patternmaker Hand Name Role Phone Unavailable Primary Care Provider Unavailabl e Social History Tobacco Use Types Packs/Day Years [...] (1 of 3 - 19+ 3-dose series) 04/2022 CERVICAL CANCER SCREENING 2024 HPV/Cotest (21-29) 2024 PAP SMEAR 2024 INFLUENZA VACCINE (#1) 2025 Insurance [facility] BLUE ACCESS CHOICE MEDICAID [id number]
--- NOTE | 2025-11-02 03:20 | ECG_ITS ---
Test Date: 2025-11-02 03:28:51 Measurements Intervals [place] Rate: 92 P: 55 MA: 182 QRS: 38 QRSD: 81 T: 31 QT: 319 QTc: 395 Interpretive Statements SINUS RHYTHM BASELINE ARTIFACT- I, II, AVR, AVL, AVF, V1 NORMAL ECG No previous ECG available for comparison Electronically Signed On 11-02-2025 06:19:14 BUSINESS ASSOCIATE by Valdez Smith D.O.
--- NOTE | 2025-11-02 07:20 | ED.CHESTPAIN ---
HPI - Chest Pain General Chief Complaint: Chest Pain Stated Complaint: pain in L shoulder/ extremity numbness Time Seen by Provider: 11/02/25 06:51 History of Present Illness HPI narrative: Patient has had these episodes before, where she has pain to her chest/left shoulder, that she feels like she can not catch her breath, and then starts having tingling to her both hands and feet. No history of anxiety. No other medical history. Symptoms have now resolved. Related Data Allergies Allergy/AdvReac Type Severity Reaction Status Date / Time POLLENEXTRACT Allergy Mild Other Uncoded 01/22/25 20:54 Berries Allergy Other Uncoded 01/22/25 20:54 Review of Systems Review of Systems: All systems reviewed & are unremarkable except as noted in HPI and below PMFSH Past Medical History Medical History Amenorrhea, primary Breast mass, right (09/2021) had ULtrasound Benign Encounter for supervision of normal first in first trimester Finger deformity surgery on bilateral pinky finger for growth plate Nipple discharge Family History Family History Mother Asthma Cancer of kidney Father Diabetes mellitus Hypertension Heart disease Grandparent Diabetes mellitus paternal Hypertension paternal Heart disease paternal Other Stomach cancer paternal aunt Social History Social History Smoking status: Never smoker Second hand tobacco smoke exposure: No Alcohol intake: never Substance use: never Substance use type: does not use Lack of Transportation: No Lack of Food: Never True Current Housing: I Have Housing Concerned About Future Housing: No Difficulty Paying Gas/Electric Bills: No Difficulty Paying for Meds: No Currently Unemployed: No Education: High School Diploma/GED Difficulty w/ Childcare or Family Care: No Living arrangements: other Additional living arrangements comments: lives with boyfriend Occupation/Education: occupation Additional occupation/education comments: 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 EYES: EOMI, conjunctiva normal ENT: Hearing grossly intact LUNGS: Nonlabored breathing. Clear to auscultation bilaterally. HEART: [Regular rate and rhythm] ABD: [Soft], [nontender to palpation] EXT: Normal range of motion SKIN: [No rashes or lesions.] NEURO: [Alert and oriented x 3. No gross focal sensory or strength deficits.] PSYCH: Normal affect Course Vital Signs Vital signs: Vital Signs Temperature 98.4 F 11/02/25 03:24 Pulse Rate 95 11/02/25 03:24 Respiratory Rate 18 11/02/25 03:24 Blood Pressure 150/84 H 11/02/25 03:24 Pulse Oximetry 100 11/02/25 03:24 Oxygen Delivery Room Air 11/02/25 03:24 Temperature 98.4 F 11/02/25 03:24 Pulse Rate 86 11/02/25 05:01 Respiratory Rate 18 11/02/25 05:01 Blood Pressure 111/76 11/02/25 05:01 Pulse Oximetry 100 11/02/25 05:01 Oxygen Delivery Room Air 11/02/25 03:24 [facility] Narrative Medical decision making narrative: Patient presenting here with symptoms consistent with panic attack. On exam patient is well-appearing in no distress, clear to auscultation bilaterally, normal range of motion, no tenderness to chest or arms. I will obtain EKG and chest xray to rule out arrhythmia/ischemia, pneumothorax, or other cause of chest discomfort/shortness of breath. Chest x-ray on my independent interpretation does not show any acute abnormality, no pneumothorax or consolidation. EKG - 12-Lead: Performed at 0328. Interpreted by me. [Sinus rhythm]. Rate 92. [Normal] axis. IA-interval [normal]. QRS duration [normal]. QTc [normal]. [No ST segment elevation or depression]. [T-wave normal]. Impression: No EKG evidence of acute ischemia or dysrhythmia. Vital signs are stable. She is PERC negative without any signs of DVT. I do feel patient is stable for discharge home at this time with followup to primary care doctor and/or product support sales representative, and return here if symptoms return or worsen. Agreeable to outpatient management. Differential Diagnosis Differential Diagnosis: Anxiety attack, ACS, pneumothorax, muscle pain, etc. Imaging Data Radiologist's impression: ITS Impressions Chest X-Ray 11/02/25 07:06 IMPRESSION: 1. No acute cardiopulmonary findings given portable technique. Discharge Plan Discharge Clinical Impression: Atypical chest pain, Anxiety attack Patient Disposition: Home Condition: Stable Instructions: Chest Pain (ED), Panic Attack (ED) Additional Instructions: Please follow-up with a primary care doctor and/or product support sales representative and you could return to the ER if your symptoms return or worsen. Patient Language: Botswanan Prescriptions: No Action norethindrone (contraceptive) [Ramona] 0.35 mg tablet 0.35 mg PO DAILY Qty: 84 1RF cyclobenzaprine 10 mg tablet 10 mg PO HS PRN (Reason: muscle spasm) Qty: 10 0RF Follow-up/Referrals: Johann Smalls MD [Physician, Family Practice] - 2 Days Enrique Torrez MD [Primary Care Provider, RETORT LOAD EXPEDITER] Catrina Merino MD [Physician, Cardiology] - 2 Days
--- OUTSIDE RECORDS SUMMARY | 2025-11-02 07:24 | XMS_ITS | Clinical Summary ---
Author Organization [facility] Address [address] [place] [address] Phone Care Team Providers Care Driver Messenger Name Role Phone Unavailable Primary Care Provider [...] SMEAR 2024 INFLUENZA VACCINE (#1) 2025 Insurance [facility] BLUE ACCESS CHOICE MEDICAID [place]
--- OUTSIDE RECORDS SUMMARY | 2025-11-02 07:24 | XMS_ITS | Clinical Summary ---
Author Organization [facility] [employer] Address [address] [facility] [place] [address] Care Team Providers Care Shank Skinner Name Role Phone Stephy Lee MD Primary Care Provider [phone] Stephy Lee MD Unavailable [phone] Source Comments [facility] [employer],non-owned Affiliates and Associated Physician Practices is amultiple site organization consisting of ambulatory clinics and hospital sitesin [place], [place], [place] and [place]. This disclosure is being madepursuant to the Care Everywhere program and may not contain all information available regarding this patient. Last updated 18.[facility] [employer] Allergies Active Allergy Reactions Criticality Noted Date Comments Raspberry Swelling 11/09/2020 [place] Swelling 11/09/2020 Medications * Be aware that [...] Comments Blood Pressure 118/70 11/09/2020 1:49 PM EDGE BANDING MACHINE OFFBEARER Pulse 100 11/09/2020 1:49 PM EDGE BANDING MACHINE OFFBEARER Temperature 36.7 C (98.1 F) 11/09/2020 1:49 PM EDGE BANDING MACHINE OFFBEARER Respiratory Rate 18 11/09/2020 1:49 PM EDGE BANDING MACHINE OFFBEARER Oxygen Saturation 95% 05/13/2020 3:48 AM CDT Inhaled Oxygen Concentration - - Weight 64.3 kg (141 lb 12.1 oz) 11/09/2020 1:49 PM EDGE BANDING MACHINE OFFBEARER Height 157.5 cm (5' 2) 05/13/2020 1:38 [...] Name:JAQUAN FOSTER (Home) Address: [address] [place] [address] Payer ID:[id number] (NAIC) Type:PPO Address: [address] [place] [id number] Care Teams Shank Skinner Relationship Specialty Start Date End Date Stephy Lee MD [address] [place] [id number] PCP - General 05/20/20 Stephy Lee MD [address] [place] [phone] Pediatrics 05/20/20
== END 2025-11-02 07:41 | disposition home or self-care (01) ==
LOC: ANHED 07:22
PROVIDERS: Emergency Provider Emergency Medicine; PCP Obstetrics & Gynecology
DX: R07.89 Other chest pain (principal); F41.9 Anxiety disorder, unspecified
CPT/HCPCS: 71045; 93005; 99283